=== PATIENT | female | born 1995 | race Caucasian/White ===

== ENCOUNTER 2019-03-19 17:31 | Emergency (ER) | payer OTHER ==
[~2019-03-19] VITALS: Ht 167.6 cm; Wt 69.5 kg
[~2019-03-19 17:31] MED LIST: ADVIL 200MG TA200 MG PO; AUGMENTIN 250 M1 TAB PO; NO HOME MEDICATIONS
[2019-03-19 17:55] VITALS: BP 116/76; TEMP 98.4
[2019-03-19 18:19] LABS: COLLECTION METHOD CLEAN CATCH
[2019-03-19 18:20] LABS: MUCOUS Present /lpf; PH 7 (5-8); URINE APPEARANCE Hazy; URINE BACTERIA Rare /hpf; URINE BILIRUBIN Negative (NEGATIVE); URINE BLOOD Negative (NEGATIVE); URINE COLOR Yellow; URINE GLUCOSE Negative (NEGATIVE); URINE KETONE Negative (NEGATIVE); URINE LEUKOCYTE ESTERASE 2+ (NEGATIVE); URINE NITRATE Positive (NEGATIVE); URINE PROTEIN(semi-quant) Negative (NEGATIVE); URINE RBC 0-2 /hpf; URINE UROBILINOGEN Negative (NEGATIVE)
[2019-03-19 18:39] LABS: BASO # 0.1 (0.0-0.2); BASO % 0.6 % (0.0-2.0); EOS # 0.2 (0.0-0.7); EOS % 2.1 % (0-4.0); GRAN # 7.9 (1.4-6.5); HEMATOCRIT 37.5 % (37.0-47.0); HEMOGLOBIN 12.7 g/dl (12.5-16.0); LYMPH # 1.7 (1.2-3.4); MEAN CELL VOLUME 86 fl (80.0-100.0); MEAN CORPUSCULAR HEMOGLOBIN 29 pg (27.0-31.0); MEAN CORPUSCULAR HGB CONC 34 g/dl (33.0-37.0); MEAN PLATELET VOLUME 10.5 fl (7.4-10.4); MONO # 0.9 (0.1-0.6); MONO % 8.1 % (1.7-9.3); PLATELET COUNT 309 K/mm3 (130-400); RED BLOOD COUNT 4.38 M/mm3 (4.10-5.30); REDCELL DISTRIBUTION WIDTH-CV 13.1 % (11.5-14.5)
[2019-03-19 18:51] LABS: ALANINE AMINOTRANSFERASE 10 U/L (9-52); ALBUMIN 4.6 gm/dL (3.5-5.0); ALKALINE PHOSPHATASE 58 U/L (50-136); ANION GAP 11 mmol/L (7-16); AST,SGOT 18 U/L (15-37); BILIRUBIN,TOTAL 0.3 mg/dL (0.0-1.0); BLOOD UREA NITROGEN 11 mg/dL (7-17); CALCIUM 9.7 mg/dL (8.4-10.2); CARBON DIOXIDE 25 mmol/L (22-30); CHLORIDE 102 mmol/L (98-107); CREATININE, serum 0.69 (0.52-1.25); GLUCOSE 95 mg/dL (74-106); SODIUM 138 mmol/L (137-145); TOTAL PROTEIN 8.2 gm/dL (6.4-8.2)
[2019-03-19 18:52] LABS: C-REACTIVE PROTEIN < 0.5 mg/dL (0.0-0.9)
[2019-03-19] MEDS ORDERED: NORCO 325 MG-51 TAB PO (20:27)
[2019-03-19] MEDS ORDERED: MACROBID 1100 MG/CAP PO (20:27)
[2019-03-19 20:40] VITALS: PULSE 98
[2019-03-20] MEDS ORDERED: MACROBID 1100 MG/CAP PO (11:08)
== END 2019-03-19 20:40 | disposition home or self-care (01) ==
LOC: COL.ER 17:31
PROVIDERS: Emergency Medicine
DX: N83.209 Unspecified ovarian cyst, unspecified side (principal); N39.0 Urinary tract infection, site not specified
CPT/HCPCS: J1885; J7030; Q9967

== ENCOUNTER → 2019-12-16 | Outpatient (CLI) | payer OTHER ==
[~2019-12-16] MED LIST changes: +MACROBID 1100 MG/CAP PO; +NORCO 325 MG-51 TAB PO
== END ==
LOC: COL.RAD
DX: N83.201 Unspecified ovarian cyst, right side (principal); Z97.5 Presence of (intrauterine) contraceptive device
CPT/HCPCS: A9585

== ENCOUNTER 2021-07-14 21:10 | Emergency (ER) | payer OTHER ==
[~2021-07-14] VITALS: Ht 167.6 cm; Wt 57.7 kg
[2021-07-14 21:29] VITALS: BP 123/102; TEMP 979.7
[2021-07-14 22:00] VITALS: PULSE 86
== END 2021-07-14 22:00 | disposition home or self-care (01) ==
LOC: COL.ER 21:10
DX: S61.211A Laceration without foreign body of left index finger without damage to nail, initial encounter (principal); W26.0XXA Contact with knife, initial encounter

== ENCOUNTER 2023-05-10 04:35 | Inpatient (IN) | payer MEDICAID ==
[2023-05-10] VITALS (26 sets, daily range): BP systolic 98–162; BP diastolic 55–97; PULSE 66–101; TEMP 97.8–98.2
[~2023-05-10] VITALS: Ht 167.6 cm; Wt 75.9 kg
[2023-05-10] MEDS ORDERED: LR 1,000 ML IV PRN (04:45)
[2023-05-10] MEDS ORDERED: PRENATAL TABLET PO (05:07)
[2023-05-10] MEDS ORDERED: LR 1,000 ML IV SCH (06:45)
[2023-05-10] MEDS ORDERED: LR & Oxytocin 500 ML IV SCH (06:45)
[2023-05-10 07:36] LABS: BASO # 0.1 K/mm3 (0.0-0.2); BASO % 0.4 % (0.0-2.0); EOS # 0.1 K/mm3 (0.0-0.7); EOS % 0.8 % (0.0-4.0); GRAN # 13.5 K/mm3 (1.4-6.5); GRAN % 81.6 % (42.2-75.2); HEMOGLOBIN 11.7 g/dl (12.5-16.0); LYMPH # 1.7 K/mm3 (1.2-3.4); MEAN CELL VOLUME 86 fl (80.0-100.0); MEAN CORPUSCULAR HEMOGLOBIN 29 pg (27-31); MEAN CORPUSCULAR HGB CONC 34 g/dl (33.0-37.0); MEAN PLATELET VOLUME 10.8 fl (7.4-10.4); MONO # 1.1 K/mm3 (0.1-0.6); MONO % 6.5 % (1.7-9.3); PLATELET COUNT 340 K/mm3 (130-400); RED BLOOD COUNT 4.03 M/mm3 (4.10-5.30); REDCELL DISTRIBUTION WIDTH-CV 13.4 % (11.5-14.5)
[2023-05-10 07:37] LABS: HEMATOCRIT 34.7 % (37.0-47.0)
[2023-05-10] MEDS ORDERED: ROPivacaine PF 0.2% 200 ML IV ONE (08:08)
--- NOTE | 2023-05-10 08:23 | NUR ---
0810 TONY DISTRICT RANGER AT BEDSIDE, EDUCATING PT ON EPIDURAL PROCEDURE AND ANSWERING QUESTIONS. SPOUSE AND PT MOTHER SUPPORTIVE AT BEDSIDE. PT SITTING UP ON EDGE OF BED, EFM AND TOCO TRACING DIFFICULT DUE TO MATERNAL POSITION AND HABITUS, THIS RN ATTEMPTS TO TRACE. 0823 TEST DOSE ADMINISTERED PER TONY BERMUDEZ. PT TOLERATED WELL, SPOUSE NEEDED TO SIT DOWN IN CHAIR DUE TO FEELING FAINT. PT VS STABLE, POSITIONED WEDGE LEFT, EFM CAT 1.
[2023-05-10] MEDS ORDERED: ePHEDrine 50 MG/10 ML VIAL IV PRN (08:45)
[2023-05-10] MEDS ORDERED: diphenhydrAMINE 50 MG/ML 1 ML VIAL IV PRN (08:45)
[2023-05-10] MEDS ORDERED: diphenhydrAMINE 25 MG CAP PO PRN (08:45)
[2023-05-10] MEDS ORDERED: Ondansetron 4 MG/2 ML VIAL IV PRN (08:45)
[2023-05-10] MEDS ORDERED: Naloxone 0.4 MG/ML VIAL IV PRN ×2 (08:45→11:30)
--- NOTE | 2023-05-10 10:22 | NUR ---
1020 PT REPORTS FEELING "NEED TO POOP" AND TIGHT VAGINAL PRESSURE, FHR SHOWING EARLY DECELS, NO VISIBLE ACCELS, MOD VARIABILITY, CTX Q 2-3 MIN, PT VS STABLE. 1022 SVE 10/100/+1 PER THIS RN AND CHARGE NURSE FRACISCO. NURSE NOTIFIED OF PT COMPLETE EXAM. NURSERY NURSE NOTIFIED, TECH NOTIFIED TO MAKE DELIVERY CART. ROOM SET FOR DELIVERY, PT SPOUSE SUPPORTIVE AT BEDSIDE. THIS RN EDUCATES PT ON PUSHING AND DELIVERY. 1028 PT BEGINS PUSHING, THIS RN OBSERVES PT PROGRESS WITH PUSHING. 1045 NURSE CALLED PER THIS RN TO COME TO UNIT FOR DELIVERY, THIS RN EXPLAINS TO PT TO STOP ACTIVE PUSHING. CHARGE NURSE AND NURSERY NURSE NOTIFIED AND IN ROOM. 1052 OF VIABLE MALE INFANT PER , PLACED ON MATERNAL CHEST, NURSERY ASSUMES CARE OF BABY. 1058 OF PLACENTA PER , BEGINS 2ND DEGREE LACERATION REPAIR. PT VS STABLE, SCANT LOCHIA, FUNDUS FIRM AT UMBILICUS. 1110 ROOM CLEANED FROM DELIVERY, PT REPOSITIONED COMFORTABLY WITH ICE PACK TO PERINEUM. PT VS STABLE, FUNDUS FIRM AT UMBILICUS, SCANT LOCHIA, PT REPORTS NO FEELING OF PAIN. SPOUSE SUPPORTIVE AT BEDSIDE.
[2023-05-10 10:54] LABS: TRICYCLIC ANTIDEPRESS URINE NEGATIVE (NEGATIVE)
[2023-05-10] MEDS ORDERED: Mag/Al Hydrox/Simeth Susp 30 ML CUP PO PRN (11:30)
[2023-05-10] MEDS ORDERED: Ibuprofen 800 MG TAB PO SCH (11:30)
[2023-05-10] MEDS ORDERED: Magnes Hydrox (MOM) 80 MG/ML 30 ML CUP PO PRN (11:30)
[2023-05-10] MEDS ORDERED: Loratadine 10 MG TAB PO PRN (11:30)
[2023-05-10] MEDS ORDERED: Acetaminophen 500 MG TAB PO SCH (11:30)
[2023-05-10] MEDS ORDERED: Witch Hazel 50% Pads Bulk TUB TP PRN (11:30)
[2023-05-10] MEDS ORDERED: Measles/Mumps/Rubella Virus Vaccine Live w Diluent 0.5 ML VIAL SQ SCH (11:30)
[2023-05-10] MEDS ORDERED: Phenylephrine/Mineral Oil/Petrolatum 57 GM TUBE RC PRN (11:30)
--- NOTE | 2023-05-10 13:45 | NUR ---
breast worker met with
--- NOTE | 2023-05-10 13:57 | NUR ---
grey roll worker met with patient, partner/FOB, Saleem Valentine, and pt's mother at bedside. SW asked if patient felt comfortable with everyone in the room or if she would like to speak privately. Pt's mother volunteered to exit. Patient felt fine and comfortable with her partner in the room. SW provided infant hat and gloves for baby and [place] Resource Guide. Pt confirms she lives in [place] and her insurance is Medicaid [employer]. Pt confirms her NOK is her father, Rufino and person to contact as Saleem. Pt reports the infant's name is Sudhakar. Pt provided they are working to add baby to partner's insurance at work. SW advised the financial counselor will be in to discuss all options with them further. SW inquired about employment/daycare. 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 She states FOB's mother will watch the as they have opposite schedules. Patient confirms they both have reliable transportation. Pt states she is not connected to local resources or signed up with WIC/Food stamps. SW provided brief information on WIC as she was unaware of what it was. SW suggested [facility]. Pt states this is her first child and she will do a combo of formula/. She has two different pumps. Pt states she has a carseat in her personal vehicle and a bassinet/crib at home. She has a good supply of diapers and wipes. Pt reports her parents are both in [place] and they are good supports, same with FOB parents. Pt has no compliants for mental health or substance use concerns. SW discussed the positive urine test for mother during . Pt reports she used CBD oil on her stretch guo and in the bath with epsom salt. She states she was "surprised" it came back positive. She has no other concerns at this time. CPS intake #: [id number]
--- NOTE | 2023-05-10 15:30 | NUR ---
PT TRANSFERED TO ROOM VIA SARASTEADY. PT TOLERATED TRANSFER WELL, PT VS STABLE, FUNDUS FIRM AT UMBILICUS, SCANT LOCHIA. PT ABLE TO VOID 900ML, NO CLOTS OBSERVED. PT ORIENTED TO ROOM AND NEW PLAN OF CARE.
[2023-05-10] MEDS ORDERED: Sennosides/Docusate 8.6-50 MG TAB PO SCH (17:00)
[2023-05-10] MEDS ORDERED: MOTRIN 800800 MG/TAB PO (20:27)
[2023-05-10] MEDS ORDERED: traZODone 50 MG TAB PO PRN (21:00)
[2023-05-11 03:10] VITALS: BP 103/73; PULSE 72; TEMP 98
[2023-05-11 08:00] VITALS: BP 110/64; PULSE 82; TEMP 98.3
--- NOTE | 2023-05-11 09:57 | NUR ---
Initial visit; Parents thanked [employer] for offering congratulations and God's blessings for the of their son. Stock Associate remarked about the name they chose for their baby and thanked them for choosing [facility].
--- NOTE | 2023-05-11 14:11 | NUR ---
drum worker recieved am email from CPS worker Alcides inquiring about mother bonding with , any conflict in the home, if the UDS was back, and questions regarding infant's well-being. SW provided necessary information via email and reported the UDS has not resulted back yet and mother was appropriate with baby and expressed no concerns.
[2023-05-11 16:06] VITALS: BP 105/72; PULSE 69; TEMP 98.1
[2023-05-11] MEDS ORDERED: Acetaminophen 500 MG TAB PO SCH (20:30)
[2023-05-11 20:40] VITALS: BP 107/72; PULSE 87; TEMP 97.9
[2023-05-12 08:30] VITALS: BP 109/71; PULSE 82; TEMP 98.3
== END 2023-05-12 13:12 | disposition home or self-care (01) | DRG 806 ==
LOC: LDRO 04:35 → LDR 04:44 → OB 04:45 → LDRO 04:45 → LDR 04:45 → OB 06:40
PROVIDERS: ADMIT Student in an Organized Health Care Education/Training Program
PROC: 10E0XZZ Delivery of Products of Conception, External Approach (ICD-10-PCS; principal; 2023-05-10)
PROC: 0KQM0ZZ Repair Perineum Muscle, Open Approach (ICD-10-PCS; 2023-05-10)
DX: O99.344 Other mental disorders complicating childbirth (principal); O99.324 Drug use complicating childbirth; Z37.0 Single live birth; F41.8 Other specified anxiety disorders; O99.02 Anemia complicating childbirth; O70.1 Second degree perineal laceration during delivery; O26.893 Other specified pregnancy related conditions, third trimester; F12.90 Cannabis use, unspecified, uncomplicated; Z86.16 Personal history of COVID-19; Z3A.38 38 weeks gestation of pregnancy; Z67.31 Type AB blood, Rh negative
CPT/HCPCS: J2590; J2795; J7120